=== PATIENT | male | born 1950 | race Caucasian/White ===

== ENCOUNTER 2016-11-15 12:16 | Inpatient (IN) | payer MEDICARE ==
[~2016-11-15] VITALS: Ht 172.7 cm; Wt 73.7 kg
[2016-11-15] VITALS (8 sets, daily range): BP systolic 105–132; BP diastolic 69–97
--- NOTE | ~2016-11-15 | O ---
[place], [place] O[facility]AT[id number] UNIT #: [id number] ROOM: 519 DOCTOR: CARINE FALLONLUCIA BIRTHDATE: [birth year] DOS: 11/16/2016 GASTROENDOSCOPIC REPORT - 1 INDICATIONS: The patient has presented with hematemesis and melanotic stool, initial white blood cell was 9.1 and 14 and 41, H and H compromised eventually to H and H of 11 and 34. The patient has been taking some Excedrin. His CT scan of the abdomen with contrast was noticed, inflammatory changes in second portion of the duodenum, also a diverticulum has been spiculated. Colonic diverticulosis has been seen. His lactic acid base was 2.5. His INR was 1.1. PAST MEDICAL HISTORY: Associated diabetes, hepatic steatosis, hyperlipidemia, hypertension, old myocardial infarction, diverticulosis of colon, and coronary artery disease. PAST SURGICAL HISTORY: Cardiac stenting, he suspects to be 2. SOCIAL HISTORY: Past alcohol and former smoking history. FAMILY HISTORY: Noncontributory. ALLERGIES: HYDROCHLOROTHIAZIDE. MEDICATION: Medication list has been reviewed. PROCEDURE: Today's procedure part of investigation is panendoscopy plus biopsy, premedication, and photographic series. PREMEDICATION: Versed and Diprivan. SCOPE: Olympus forward-viewing gastroscope Q10 video. REPORT: After putting the patient in the left lateral position and after application of lubricant to the scope, the scope was introduced. Thereafter, under direct visualization, I advanced through the length of the esophagus without difficulty. Diffuse esophageal ulcerations all the way from thoracic to distal esophagus in circular pattern and patchy formation was identified. This is more intensified as we approached the Z line. Hiatal hernia, which is 2 cm, was identified. Gastric pouch was entered and entering duodenal bulb. There is a deformity of duodenal bulb secondary to deep ulceration in the second part of duodenum, which simulates a diverticulum at the present time. In order to not to lead to perforation of the anatomy, scope withdrawn after photographic series and tolerated procedure well. Antral biopsy obtained for H. pylori. IMPRESSION: 1. 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 2. Diffuse esophageal ulcerations secondary to reflux and compromising gastric outlet patency. 3. Hiatal hernia. [place], [place] OPERATIVE NOTE NAME: RENEE GA UNIT #: [id number] ROOM: 519 DOCTOR: LUCIA HAWK MD BIRTHDATE: [birth year] PLAN AND DISCUSSION: The patient is going to be placed on ice cream, milk shake and Ensure, liquid products to have the access to pass through the stricture site of the duodenum in the presence of ulceration. Aggressive ulcer therapy with Protonix drip as well as sucralfate 2 grams q. 6 hours as well as Gaviscon 15 mL 1 hour p.c. meals and at bedtime with antireflux, elevation of the head of bed 6 inches all time and clinical reassessment. Thank you very much indeed. GASTROENDOSCOPIC REPORT - 2 INDICATIONS: The patient has presented with GI bleed, undergoing investigation. PROCEDURE: Today's procedure part of investigation is colonoscopy and piecemeal polypectomy. PREMEDICATION: Versed and Diprivan. SCOPE: Olympus forward-viewing colonoscope 10L video. REPORT: After putting the patient in the left lateral position and after application of lubricant to the scope, the scope was introduced. Thereafter, under direct visualization, I advanced through the length of colon without difficulty. Base of the cecum explored, appendiceal orifice identified, and ileocecal valve was defined. Diverticulosis of moderate degree in sigmoid colon was identified. Sessile polypoid lesion in rectal pouch approximately 10 cm from rectal sphincter, piecemeal polypectomy removed. Air was suctioned out. The patient extubated and tolerated the procedure well. IMPRESSION: 1. Rectal pouch polyp, sessile in character, status post piecemeal polypectomy. 2. Diverticulosis of moderate degree of the sigmoid colon. PLAN AND DISCUSSION AND SUMMARY: This patient has bled from upper GI tract with the findings as identified. We are going to aggressively treat the ulcer. We are going to withhold aspirin products and anticoagulants at the present time as well and clinical reassessment. This patient requires to have in about 8 weeks re-endoscopy to reassess the status of the ulcer in duodenum and reevaluation. [place], [place] OPERATIVE NOTE NAME: RENEE GA UNIT #: [id number] ROOM: 519 DOCTOR: LUCIA HAWK MD BIRTHDATE: [birth year] LUCIA HAWK MD CM:FADI:OPERATIVE NOTE 1121 [id number] LUCIA HAWK MD 11/16/16 1254 interface
[~2016-11-15 12:16] MED LIST: PROTONIX40 MG PO
[2016-11-15 12:39] LABS: BASO % 0.3 % (0.0-1.0); EOS % 0.1 % (1.0-4.0); HEMATOCRIT 41.5 % (42.0-52.0); HEMOGLOBIN 14.6 g/dl (14.0-18.0); IG # 0.1 10*3/uL (0.0-0.1); LYMPH # 1.7 10*3/uL (1.3-4.4); LYMPH % 11.2 % (27.0-41.0); MEAN CELL VOLUME 85.7 fl (80.0-94.0); MEAN CORPUSCULAR HGB 30.2 pg (27.0-31.0); MEAN CORPUSCULAR HGB CONC 35.2 g/dl (33.0-37.0); MEAN PLATELET VOLUME 9.4 fl (9.6-12.3); MONO # 0.9 10*3/uL (0.1-1.0); MONO % 5.8 % (3.0-9.0); NEUT # 12.2 10*3/uL (2.3-7.9); NEUT % 82.3 % (47.0-73.0); PLATELET COUNT AUTOMATED 338 10*3/uL (130-400); RED BLOOD COUNT 4.84 10*6/uL (4.50-5.90); RED CELL DISTRI WIDTH 12.5 % (0-14.5); WHITE BLOOD COUNT 14.8 10*3/uL (4.8-10.8)
[2016-11-15 12:58] LABS: BILIRUBIN, TOTAL 0.8 mg/dl (0.2-1.0); POTASSIUM 3.7 mmol/L (3.5-5.1); TOTAL PROTEIN 8.3 gm/dL (6.4-8.2)
[2016-11-15 13:26] LABS: BILIRUBIN 2+ (NEGATIVE); BLOOD TRACE-LYSED (NEGATIVE); CLARITY CLEAR (CLEAR); COLOR YELLOW (YELLOW); GLUCOSE TRACE (NEGATIVE); KETONE 2+ (NEGATIVE); LEUKO ESTERASE NEGATIVE (NEGATIVE); NITRITE NEGATIVE (NEGATIVE); PH 6.5 (5.0-9.0); PROTEIN 1+ (NEGATIVE); SPECIFIC GRAVITY 1.015 (1.005-1.030)
[2016-11-15] MEDS ORDERED: ZOFRAN ODT4 MG SL (13:35)
[2016-11-15] MEDS ORDERED: PRILOSEC20 M1 PO (13:36)
[2016-11-15 13:37] LABS: MUCOUS 1+; URINE REFLEX COMMENT NO (NO)
[2016-11-15 15:17] LABS: MAGNESIUM 1.9 mg/dL (1.5-2.1)
[2016-11-15 17:03] LABS: LA>2 REFLEX 2 HR DRAW NOW
[2016-11-15] MEDS ORDERED: NORVASC10 MG PO (18:43)
[2016-11-15] MEDS ORDERED: LISINOPRIL20 MG PO (18:43)
[2016-11-15] MEDS ORDERED: SIMVASTATIN40 MG PO (18:44)
[2016-11-15] MEDS ORDERED: METOPROLOL TART50 M1 PO (18:44)
[2016-11-15] MEDS ORDERED: ASPIRIN325 MG PO (18:45)
[2016-11-15] MEDS ORDERED: METFORMIN1000 MG PO (18:45)
[2016-11-15] MEDS ORDERED: MELOXICAM15 MG PO (18:46)
[2016-11-16] VITALS (9 sets, daily range): BP systolic 86–136; BP diastolic 51–88
[2016-11-16 06:23] LABS: BASO % 0.4 % (0.0-1.0); EOS # 0.1 10*3/uL (0.0-0.4); EOS % 0.6 % (1.0-4.0); MEAN CORPUSCULAR HGB 29.9 pg (27.0-31.0); MEAN CORPUSCULAR HGB CONC 33.6 g/dl (33.0-37.0); MEAN PLATELET VOLUME 9.3 fl (9.6-12.3); MONO # 0.7 10*3/uL (0.1-1.0); MONO % 6.9 % (3.0-9.0); NEUT # 6.7 10*3/uL (2.3-7.9); NEUT % 70.9 % (47.0-73.0); RED BLOOD COUNT 3.85 10*6/uL (4.50-5.90); RED CELL DISTRI WIDTH 12.5 % (0-14.5); WHITE BLOOD COUNT 9.5 10*3/uL (4.8-10.8)
[2016-11-16 06:26] LABS: HEMATOCRIT 34.2 % (42.0-52.0); HEMOGLOBIN 11.5 g/dl (14.0-18.0); MEAN CELL VOLUME 88.8 fl (80.0-94.0); PLATELET COUNT AUTOMATED 217 10*3/uL (130-400)
[2016-11-16 06:44] LABS: HEMOGLOBIN A1c 7.9 % (4.8-5.6)
[2016-11-16 07:00] LABS: ALBUMIN 3.2 gm/dl (3.1-4.5); ALKALINE PHOSPHATASE 74 U/L (45-117); BILIRUBIN, TOTAL 0.9 mg/dl (0.2-1.0); BUN 13 mg/dl (7-24); CARBON DIOXIDE 23 mmol/L (21-32); CHLORIDE 107 mmol/L (98-107); CHOLESTEROL 105 mg/dL (<200); EST GLOM FILT AFRICAN AMERICAN > 60 ml/min; GLUCOSE 143 mg/dL (65-99); HDL CHOLESTEROL 37 mg/dl (40-60); LDL CHOLESTEROL 36 mg/dL (9-159); MAGNESIUM 1.6 mg/dL (1.5-2.1); PHOSPHOROUS 3.3 mg/dL (2.5-4.9); POTASSIUM 3.6 mmol/L (3.5-5.1); SGOT/AST 64 IU/L (3-35); SGPT/ALT 33 U/L (12-78); SODIUM 139 mmol/L (136-145); TOTAL PROTEIN 6.6 gm/dL (6.4-8.2); TRIGLYCERIDES 158 mg/dl (<150); VLDL CHOLESTEROL 32 mg/dL (6-40)
[2016-11-16 07:12] LABS: PROTHROMBIN TIME 10.8 SECONDS (9.0-12.4)
[2016-11-16 07:34] LABS: FOLIC ACID 11.71 ng/mL (>5.38)
[2016-11-17] VITALS: BP 124/77
[2016-11-17 06:28] LABS: BASO # 0.1 10*3/uL (0.0-0.1); BASO % 0.8 % (0.0-1.0); EOS # 0.3 10*3/uL (0.0-0.4); EOS % 4.8 % (1.0-4.0); HEMATOCRIT 32.8 % (42.0-52.0); HEMOGLOBIN 11.1 g/dl (14.0-18.0); MEAN CELL VOLUME 89.6 fl (80.0-94.0); MEAN CORPUSCULAR HGB 30.3 pg (27.0-31.0); MEAN CORPUSCULAR HGB CONC 33.8 g/dl (33.0-37.0); MEAN PLATELET VOLUME 9.6 fl (9.6-12.3); MONO # 0.4 10*3/uL (0.1-1.0); MONO % 6.2 % (3.0-9.0); NEUT # 3.5 10*3/uL (2.3-7.9); NEUT % 55.7 % (47.0-73.0); PLATELET COUNT AUTOMATED 207 10*3/uL (130-400); RED BLOOD COUNT 3.66 10*6/uL (4.50-5.90); RED CELL DISTRI WIDTH 12.5 % (0-14.5); WHITE BLOOD COUNT 6.3 10*3/uL (4.8-10.8)
[2016-11-17 06:44] LABS: ALKALINE PHOSPHATASE 69 U/L (45-117); BILIRUBIN, TOTAL 0.7 mg/dl (0.2-1.0); BUN 8 mg/dl (7-24); CARBON DIOXIDE 25 mmol/L (21-32); CHLORIDE 108 mmol/L (98-107); EST GLOM FILT AFRICAN AMERICAN > 60 ml/min; GLUCOSE 106 mg/dL (65-99); POTASSIUM 3.9 mmol/L (3.5-5.1); SGOT/AST 94 IU/L (3-35); SGPT/ALT 38 U/L (12-78); SODIUM 140 mmol/L (136-145); TOTAL PROTEIN 6.6 gm/dL (6.4-8.2)
[2016-11-17 08:00] VITALS: BP 140/76
[2016-11-17 12:00] VITALS: BP 135/77
[2016-11-17 16:00] VITALS: BP 120/73
[2016-11-17 20:00] VITALS: BP 155/80
[2016-11-18] VITALS: BP 121/80
[2016-11-18 06:22] LABS: BASO # 0.1 10*3/uL (0.0-0.1); EOS # 0.4 10*3/uL (0.0-0.4); EOS % 5.2 % (1.0-4.0); HEMATOCRIT 38.3 % (42.0-52.0); HEMOGLOBIN 12.9 g/dl (14.0-18.0); LYMPH # 2.6 10*3/uL (1.3-4.4); LYMPH % 31.1 % (27.0-41.0); MEAN CELL VOLUME 87.8 fl (80.0-94.0); MEAN CORPUSCULAR HGB 29.6 pg (27.0-31.0); MEAN CORPUSCULAR HGB CONC 33.7 g/dl (33.0-37.0); MEAN PLATELET VOLUME 9.5 fl (9.6-12.3); MONO # 0.5 10*3/uL (0.1-1.0); MONO % 6.3 % (3.0-9.0); NEUT # 4.7 10*3/uL (2.3-7.9); RED BLOOD COUNT 4.36 10*6/uL (4.50-5.90); RED CELL DISTRI WIDTH 12.5 % (0-14.5); WHITE BLOOD COUNT 8.3 10*3/uL (4.8-10.8)
[2016-11-18 06:26] LABS: PLATELET COUNT AUTOMATED 320 10*3/uL (130-400)
[2016-11-18 06:43] LABS: ALBUMIN 3.7 gm/dl (3.1-4.5); BUN 6 mg/dl (7-24); CARBON DIOXIDE 22 mmol/L (21-32); CHLORIDE 107 mmol/L (98-107); GLUCOSE 129 mg/dL (65-99); POTASSIUM 3.4 mmol/L (3.5-5.1); SGOT/AST 100 IU/L (3-35); SGPT/ALT 56 U/L (12-78); SODIUM 140 mmol/L (136-145)
[2016-11-18 06:46] LABS: ALKALINE PHOSPHATASE 78 U/L (45-117); BILIRUBIN, TOTAL 0.6 mg/dl (0.2-1.0); EST GLOM FILT AFRICAN AMERICAN > 60 ml/min; TOTAL PROTEIN 7.9 gm/dL (6.4-8.2)
[2016-11-18 08:00] VITALS: BP 149/83
[2016-11-18] MEDS ORDERED: PROTONIX TR40 M1 PO (10:37)
[2016-11-18] MEDS ORDERED: CARAFATE1 GM/10 ML PO (10:37)
== END 2016-11-18 11:13 | disposition home or self-care (01) | DRG 871 ==
LOC: ED 12:16 → EDHOLD 13:51 → 5E 13:51
PROVIDERS: Emergency Medicine; Internal Medicine; Internal Medicine Nephrology
DX: A41.9 Sepsis, unspecified organism (principal); N17.0 Acute kidney failure with tubular necrosis; K31.5 Obstruction of duodenum; K26.4 Chronic or unspecified duodenal ulcer with hemorrhage; E87.1 Hypo-osmolality and hyponatremia; K22.10 Ulcer of esophagus without bleeding; E87.8 Other disorders of electrolyte and fluid balance, not elsewhere classified; R65.20 Severe sepsis without septic shock; I25.10 Atherosclerotic heart disease of native coronary artery without angina pectoris; E11.9 Type 2 diabetes mellitus without complications; E78.5 Hyperlipidemia, unspecified; I10 Essential (primary) hypertension; K29.80 Duodenitis without bleeding; K76.0 Fatty (change of) liver, not elsewhere classified; K44.9 Diaphragmatic hernia without obstruction or gangrene; K57.30 Diverticulosis of large intestine without perforation or abscess without bleeding; D64.9 Anemia, unspecified; E53.8 Deficiency of other specified B group vitamins; E55.9 Vitamin D deficiency, unspecified; D12.7 Benign neoplasm of rectosigmoid junction; K31.89 Other diseases of stomach and duodenum; Z79.84 Long term (current) use of oral hypoglycemic drugs; Z87.891 Personal history of nicotine dependence; Z79.899 Other long term (current) drug therapy; Z95.5 Presence of coronary angioplasty implant and graft; I25.2 Old myocardial infarction; Z88.8 Allergy status to other drugs, medicaments and biological substances; Z80.8 Family history of malignant neoplasm of other organs or systems